=== PATIENT | female | born 1965 ===

== ENCOUNTER 2017-01-20 10:28 | Emergency (ER) | payer OTHER ==
[2017-01-20 10:37] VITALS: BP 160/112
--- NOTE | 2017-01-20 11:12 | ER Document Report ---
ED Medical Screen (RME) - General Chief Complaint: Headache Stated Complaint: HEADACHE,WEAKNESS Time Seen by Provider: 01/20/17 11:11 Notes: Patient is complaining of a headache and vomiting. Patient says that she was out of her blood pressure medicines for about 3 months and resumed taking yesterday morning. After taking the medication, she began vomiting and did so 6 times since then. She has had a headache as well in the frontal, facial region. Recent illness and no fevers. PMH: Bilateral mastectomy for breast cancer 7 ago. TRAVEL OUTSIDE OF THE [place] IN LAST 30 DAYS: No - Related Data Allergies/Adverse Reactions: No Known Allergies Allergy (Verified 01/20/17 10:35) Past Medical History Renal/ Medical History: Denies: Hx Peritoneal Dialysis Physical Exam - Vital signs Vitals: Temp Pulse Resp BP Pulse Ox 98.1 F 73 20 160/112 H 98 01/20/17 10:35 01/20/17 10:35 01/20/17 10:35 01/20/17 10:35 01/20/17 10:35 Course - Vital Signs Vital signs: Temp Pulse Resp BP Pulse Ox 98.1 F 73 20 160/112 H 98 01/20/17 10:35 01/20/17 10:35 01/20/17 10:35 01/20/17 10:35 01/20/17 10:35
[2017-01-20] MEDS ORDERED: ONDANSETRON 4 MG TAB.RAPDIS PO ONE ×2 (11:13→12:57)
[2017-01-20] MEDS ORDERED: CLONIDINE HCL 0.1 MG TABLET PO ONE ×2 (11:14→12:57)
[2017-01-20 11:50] LABS: ABSOLUTE BASOPHILS # (AUTO) 0.1 10^3/uL (0.0-0.2); ABSOLUTE EOSINOPHILS # (AUTO) 0.1 10^3/uL (0.0-0.6); ABSOLUTE LYMPHOCYTES (AUTO) 2.5 10^3/uL (0.5-4.7); ABSOLUTE MONOCYTES (AUTO) 0.5 10^3/uL (0.1-1.4); ABSOLUTE NEUT (AUTO) 4.6 10^3/uL (1.7-8.2); BASOPHILS % (AUTO) 1.1 % (0-2); EOSINOPHILS % (AUTO) 1.3 % (0-6); HEMATOCRIT 44.6 % (36.0-47.0); HEMOGLOBIN 14.2 g/dL (12.0-15.5); LYMPHOCYTES % (AUTO) 32.4 % (13-45); MEAN CORPUSCULAR HEMOGLOBIN 29.2 pg (27.0-33.4); MEAN CORPUSCULAR HGB CONC 31.9 g/dL (32.0-36.0); MEAN CORPUSCULAR VOLUME 92 fl (80-97); MONOCYTES % (AUTO) 6.3 % (3-13); RED BLOOD COUNT 4.87 10^6/uL (3.72-5.28); RED CELL DISTRIBUTION WIDTH 13.5 % (11.5-14.0); SEGMENTED NEUTROPHILS % (AUTO) 58.9 % (42-78); WHITE BLOOD COUNT 7.8 10^3/uL (4.0-10.5)
[2017-01-20 12:11] LABS: ALANINE AMINOTRANSFERASE 39 U/L (9-52); ALBUMIN 3.9 g/dL (3.5-5.0); ALKALINE PHOSPHATASE 103 U/L (38-126); ANION GAP 11 (5-19); ASPARTATE AMINO TRANSFERASE 23 U/L (14-36); BILIRUBIN,DIRECT 0.3 mg/dL (0.0-0.4); BILIRUBIN,TOTAL 0.7 mg/dL (0.2-1.3); BLOOD UREA NITROGEN 19 mg/dL (7-20); CALCIUM 9.6 mg/dL (8.4-10.2); CARBON DIOXIDE 25 mmol/L (22-30); CHLORIDE 108 mmol/L (98-107); CREATININE RESULT 0.63 mg/dL (0.52-1.25); GLUCOSE 87 mg/dL (75-110); POTASSIUM 4.2 mmol/L (3.6-5.0); SODIUM 143.8 mmol/L (137-145); TOTAL PROTEIN 6.9 g/dL (6.3-8.2)
[2017-01-20] MEDS ORDERED: MECLIZINE HCL 25 MG TABLET PO ONE (12:56)
--- NOTE | 2017-01-20 12:56 | ER Document Report ---
ED General - General Mode of Arrival: Medic Information source: Patient TRAVEL OUTSIDE OF THE [place] IN LAST 30 DAYS: No - HPI Patient complains to provider of: Headache, nausea, and weakness Onset: This morning Associated symptoms: Other - see notes above <CLEO DOE - Last Filed: 01/20/17 13:12> <CECELIA WELDON - Last Filed: 01/20/17 15:26> - General Chief Complaint: Headache Stated Complaint: HEADACHE,WEAKNESS Time Seen by Provider: 01/20/17 12:50 Notes: 51 year old female with history of hypertension presents to the ED complaining of headache, nausea, and weakness that started earlier this morning. Patient reports that she was taking a fluid pill as prescribed by the [facility], but was recently put back onto Lisinopril 2 days ago. Patient reports vomiting while at work yesterday and diaphoresis, lightheaded, headache, gait changes, and dizziness that started today. Patient reports that she has not tried walking since developing symptoms today. When the patient was road tested , patient's friend states that her gait appears normal, but the patient has been falling recently and they have not seen a provider regarding this. Patient reports that she becomes increasingly lightheaded and her headache is worse when walking. Patient also notes that she has had to strain her eyes to focus for the past week. (CLEO DOE) - Related Data Allergies/Adverse Reactions: No Known Allergies Allergy (Verified 01/20/17 10:35) Past Medical History - General Information source: Patient, Friend - Social History Smoking Status: Never Smoker Chew tobacco use (# tins/day): No Frequency of alcohol use: None Drug Abuse: None Family History: Reviewed & Not Pertinent Patient has suicidal ideation: No Patient has homicidal ideation: No - Past Medical History Cardiac Medical History: Reports: Hx Hypertension Renal/ Medical History: Denies: Hx Peritoneal Dialysis <CLEO DOE - Last Filed: 01/20/17 13:12> Review of Systems - Review of Systems Constitutional: See HPI, Diaphoresis, Weakness EENT: No symptoms reported Cardiovascular: See HPI, Dizziness, Lightheaded Respiratory: No symptoms reported Gastrointestinal: See HPI, Nausea Genitourinary: No symptoms reported Female Genitourinary: No symptoms reported Musculoskeletal: No symptoms reported Skin: No symptoms reported Hematologic/Lymphatic: No symptoms reported Neurological/Psychological: See HPI, Headaches -: Yes All other systems reviewed and negative <CLEO DOE - Last Filed: 01/20/17 13:12> Course - Laboratory Result Diagrams: 01/20/17 11:25 01/20/17 11:25 <CLEO DOE - Last Filed: 01/20/17 13:12> - Laboratory Result Diagrams: 01/20/17 11:25 01/20/17 11:25 <CECELIA WELDON - Last Filed: 01/20/17 15:26> - Re-evaluation Re-evalutation: 01/20/17 15:23 Patient presents to the emergency department with a chief complaint of headache dizziness and generalized weakness. She has been out of her medications for a prolonged period of time and recently [facility] and was started on lisinopril and took her first dose yesterday. Today she had a slight frontal headache which was throbbing in nature not associated with blurred vision double vision strokelike symptoms slurred speech weakness once body versus the other. She has no history of stroke or mini stroke in the past. No history of brain aneurysm is not the worst headache of her life. Family members to do with her the entire time states she has been acting completely normal. Family members report that she has a bizarre gait at baseline but that she is not any different when she ambulates. No syncopal event earache sore throat cough neck pain or nuchal rigidity. Arrival here she her foot she has not been doi blood pressure was 160/112 she took her first dose of medication yesterday on examination patient is no altered mental status no nuchal rigidity no neurological deficits her gait is baseline according to family members and friends at the bedside. No syncope or near syncope or neurological deficits. She was given clonidine and Antivert with improvement. She has less dizziness with movement of the head as she did on her initial examination. She is going be discharged home with a prescription for Antivert has an appointment on Tuesday and discuss reasons for ED return sooner (CECELIA WELDON) - Vital Signs Vital signs: Temp Pulse Resp BP Pulse Ox 98.1 F 73 20 160/112 H 98 01/20/17 10:35 01/20/17 10:35 01/20/17 10:35 01/20/17 10:35 01/20/17 10:35 - Laboratory Laboratory results interpreted by me: 01/20/17 01/20/17 01/20/17 11:25 11:25 13:24 MCHC 31.9 L Chloride 108 H Urine Protein 100 H Ur Leukocyte Esterase MODERATE H Discharge <CLEO DOE - Last Filed: 01/20/17 13:12> <CECELIA WELDON - Last Filed: 01/20/17 15:26> - Discharge Clinical Impression: Vertigo Condition: Stable Disposition: HOME, SELF-CARE Instructions: Headache ([facility]) Additional Instructions: Vertigo You have experienced an episode of vertigo -- a whirling dizziness which may be accompanied by nausea and vomiting or staggering. Vertigo is often caused by an irritation of the inner ear, in which case it is called labyrinthitis. It can also be a symptom of a degenerating inner ear, nerve damage, or brain injury. Your physician has evaluated you to determine whether any further testing is necessary. Vertigo is often treated with dramamine or meclizine. These medications are helpful, but stronger medication may be needed if you are vomiting. Rest in bed. You should not drive or operate machinery until completely better. It may take one to three weeks for recovery. If there are new symptoms, such as decreased hearing or vision, severe headache, weakness or faintness, or confusion, call the physician. Prescriptions: Meclizine HCl [Antivert 25 mg Tablet] 25 mg PO TID #12 tablet Forms: Elevated Blood Pressure Scribe Attestation: 01/20/17 15:23 I personally performed the services described in the documentation reviewed the documentation recorded by my scribe in my presence and it accurately and completely records my words and actions (CECELIA WELDON) Scribe Documentation - Scribe Written by Luis:: Luis Brunner, 01/20/2017 1316 acting as scribe for :: Anup <CLEO DOE - Last Filed: 01/20/17 13:12>
[2017-01-20 13:54] LABS: APPEARANCE,URINE CLEAR; BILIRUBIN,URINE NEGATIVE (NEGATIVE); GLUCOSE, URINE NEGATIVE (NEGATIVE); KETONES,URINE NEGATIVE (NEGATIVE); LEUKOCYTE ESTERASE,URINE MODERATE (NEGATIVE); NITRITE,URINE NEGATIVE (NEGATIVE); PROTEIN,URINE 100 mg/dL (NEGATIVE); URINE SPECIFIC GRAVITY 1.019; UROBILINOGEN,URINE NEGATIVE mg/dL (<2.0)
== END 2017-01-20 15:37 | disposition home or self-care (01) ==
LOC: ER 10:28
DX: R42 Dizziness and giddiness (principal); R11.2 Nausea with vomiting, unspecified; I10 Essential (primary) hypertension; R51 Headache; R53.1 Weakness; R61 Generalized hyperhidrosis; R29.6 Repeated falls
CPT/HCPCS: 99284; 36415; 85025; 80053; 81001; 70450; S0119